=== PATIENT | female | born 1990 | race African-American/Black ===

== ENCOUNTER 2019-02-02 12:42 | Emergency (ER) | payer OTHER, SELFPAY | END 2019-02-02 13:01 | disposition home or self-care (01) | LOC: SCSER 12:42 | DX: K04.7 Periapical abscess without sinus (principal); K02.9 Dental caries, unspecified | CPT/HCPCS: 99282 ==

== ENCOUNTER 2021-05-09 18:57 | Emergency (ER) | payer OTHER ==
[2021-05-09] MEDS ORDERED: Ondansetron ODT 4 MG TAB ONE (22:57)
[2021-05-09] MEDS ORDERED: Meclizine HCl 25 MG TAB ONE (22:57)
== END 2021-05-10 01:33 | disposition home or self-care (01) ==
LOC: ERS 18:57
DX: R42 Dizziness and giddiness (principal)
CPT/HCPCS: 99283; Q0162